=== PATIENT | female | born 1950 | race Caucasian/White ===

== ENCOUNTER 2019-07-28 21:02 | Emergency (ER) | payer OTHER ==
--- NOTE | 2019-07-28 21:10 | PDOC ---
History of Present Illness - General Chief Complaint: Nausea/Vomiting Stated Complaint: VOMITING Time Seen by Provider: 07/28/19 21:09 - History of Present Illness Initial Comments: 07/28/19 21:10 68 year old female with significant medical hx of gastritis (omeprazole) who presents with 1 week of headache and abdominal pain that worsened today and associated with 10x episodes of nbnb emesis and diarrhea over the past hour. The patient denies fevers, chest pain, shortness of breath, dysuria, hematuria or recent illness. She has no other complaints. No history of gallstones of alcohol use. ROS GENERAL/CONSTITUTIONAL: No fever or chills. No weakness. HEAD, EYES, EARS, NOSE AND THROAT: No sore throat. CARDIOVASCULAR: No chest pain or shortness of breath RESPIRATORY: No cough, wheezing, or hemoptysis. GASTROINTESTINAL: + nausea, vomiting, diarrhea, No constipation. GENITOURINARY: No dysuria, frequency, or change in urination. MUSCULOSKELETAL: No joint or muscle swelling or pain. No neck or back pain. SKIN: No rash NEUROLOGIC: + headache, No vertigo, loss of consciousness, or change in strength /sensation. PE GENERAL: Awake, alert, and fully oriented, in no acute distress HEAD: No signs of trauma, normocephalic, atraumatic EYES: EOMI, sclera anicteric, conjunctiva clear ENT: oropharynx clear without exudates. Moist mucosa NECK: Normal ROM, supple LUNGS: No distress, speaks full sentences, clear to auscultation bilaterally HEART: Regular rate and rhythm, normal S1 and S2, no murmurs, rubs or gallops, peripheral pulses normal and equal bilaterally. ABDOMEN: Soft, nontender No guarding, no rebound. No masses EXTREMITIES : Normal inspection, Normal range of motion, no edema. No clubbing or cyanosis. NEUROLOGICAL: Cranial nerves II through XII grossly intact. Normal speech, no focal sensorimotor deficits, no deficit on finger to nose SKIN: Warm, Dry, normal turgor, no rashes or lesions noted MDM DDX including but not limited to: viral gastroenteritis vs pud vs pancreatitis vs cholelithiasis r/o acs ED Course: cbc, cmp, lipase, trop, ekg reglan, zofran, pepcid, maalox, sucralfate, levsin Initial Vital Signs Temp Pulse Resp BP Pulse Ox 97.1 F L 78 18 111/69 100 07/28/19 21:10 07/28/19 21:10 07/28/19 21:10 07/28/19 21:10 07/28/19 21:10 CBCD WBC 17.7 K/mm3 (4.0-10.0) H 07/28/19 21:49 RBC 5.10 M/mm3 (3.60-5.2) 07/28/19 21:49 Hgb 16.0 GM/dL (10.7-15.3) H 07/28/19 21:49 Hct 48.3 % (32.4-45.2) H 07/28/19 21:49 MCV 94.7 fl (80-96) 07/28/19 21:49 MCHC 33.1 g/dl (32.0-36.0) 07/28/19 21:49 RDW 14.1 % (11.6-15.6) D 07/28/19 21:49 Plt Count 260 K/MM3 (134-434) 07/28/19 21:49 MPV 8.5 fl (7.5-11.1) D 07/28/19 21:49 CMP Sodium 137 mmol/L (136-145) 07/28/19 21:49 Potassium 4.4 mmol/L (3.5-5.1) 07/28/19 21:49 Chloride 103 mmol/L (98-107) 07/28/19 21:49 Carbon Dioxide 27 mmol/L (21-32) 07/28/19 21:49 Anion Gap 7 MMOL/L (8-16) L 07/28/19 21:49 BUN 17.2 mg/dL (7-18) 07/28/19 21:49 Creatinine 1.1 mg/dL (0.55-1.3) 07/28/19 21:49 Calcium 10.1 mg/dL (8.5-10.1) 07/28/19 21:49 Total Bilirubin 0.3 mg/dL (0.2-1) 07/28/19 21:49 AST 60 U/L (15-37) H 07/28/19 21:49 ALT 77 U/L (13-61) H 07/28/19 21:49 Alkaline Phosphatase 293 U/L (45-117) H 07/28/19 21:49 Total Protein 9.4 g/dl (6.4-8.2) H 07/28/19 21:49 Albumin 4.6 g/dl (3.4-5.0) 07/28/19 21:49 labs with leukocytosis elevated alk phos CT AP shows no acute pathology on reassessment patient feels improved and eager to d/c urine with + UTI will treat and d/c with pcp f.u and abx strict return precautions provided patient expresses understanding and agrees ot f/u barby Mars, PGY2 Emergency Medicine Past History - Past Medical History Allergies/Adverse Reactions: Allergies Allergy/AdvReac Type Severity Reaction Status Date / Time No Known Drug Allergies Allergy Unknown Verified 10/27/15 15:41 Home Medications: Ambulatory Orders Ondansetron [Zofran *Odt*] 4 mg SL TID #30 od.tablet 10/28/15 Pantoprazole Sodium [Protonix] 40 mg PO DAILY #30 tablet. 10/28/15 Cephalexin Monohydrate [Keflex -] 500 mg PO BID 7 Days #13 capsule 07/29/19 Ondansetron [Zofran -] 4 mg PO BID #14 tablet 07/29/19 GI Disorders: Yes (GERD) - Surgical History GI Surgery: Yes (COLONOSCOPY) - Psycho Social/Smoking Cessation Hx Smoking History: Never smoked Hx Alcohol Use: No Drug/Substance Use Hx: No ED Treatment Course - LABORATORY CBC & Chemistry Diagram: 07/28/19 21:49 07/28/19 21:49 Discharge - Discharge Information Problems reviewed: Yes Clinical Impression/Diagnosis: Gastroenteritis Condition: Stable Disposition: HOME - Admission No - Additional Discharge Information Prescriptions: Cephalexin Monohydrate [Keflex -] 500 mg PO BID 7 Days #13 capsule Ondansetron [Zofran -] 4 mg PO BID #14 tablet - Follow up/Referral - Patient Discharge Instructions Patient Printed Discharge Instructions: DI for Vomiting -- Adult Additional Instructions: You were seen in the ED for complaints of vomiting and diarrhea In the ED you were evaluated with labwork and imaging Your results showed an elevated white count and a urinary tract infection Your abdomen CT scan was unremarkable for abdomen abnormality There does not appear to be an acute need for immediate hospitalization. You are advised to follow up with your Primary Care Physician within 1 week. You were given a prescription for Zofran antinausea medicine and Keflex for treatment of your UTI Return to the ED immediately if you experience if you experience worsening nausea, vomiting, fever, blood in the diarrhea or vomit or any other concerning symptoms. Usted fue visto en el servicio de urgencias por quejas de vmitos y diarrea En el servicio de urgencias, lo evaluaron con anlisis de laboratorio e imgenes Daisy resultados mostraron un recuento elevado de blancos y robson infeccin del tracto urinario Salmeron tomografa computarizada del abdomen no fue notable por anormalidad abdominal No parece tamar robson necesidad aguda de hospitalizacin inmediata. Se recomienda hacer un seguimiento con salmeron mdico de atencin primaria dentro de 1 semana. Se le recet un medicamento contra las nuseas Zofran y Keflex para el tratamiento de salmeron infeccin urinaria. Regrese al servicio de urgencias de inmediato si experimenta nuseas, vmitos, fiebre, brea en la diarrea o vmito o cualquier otro sntoma relacionado. - Post Discharge Activity
[2019-07-28] MEDS ORDERED: ONDANSETRON 4 MG/2 ML VIAL IVPUSH ONE (21:12)
[2019-07-28] MEDS ORDERED: SODIUM CHLORIDE 1,000 ML IV SCH ×2 (21:15→22:17)
[2019-07-28] MEDS ORDERED: SUCRALFATE 1 GM/10 ML UNIT DOSE CUPS PO ONE (21:39)
[2019-07-28] MEDS ORDERED: MAG HYDROX/AL HYDROX/SIMETH -MYLANTA- ORAL SUSPENSION PO ONE (21:39)
[2019-07-28] MEDS ORDERED: FAMOTIDINE 20 MG/50 ML IVPB 20 MG/50 ML MG IVPB ONE ×2 (21:39→22:14)
[2019-07-28] MEDS ORDERED: ACETAMINOPHEN 1000 MG/100 ML VIAL (NON FORMULARY) IVPB ONE (21:40)
[2019-07-28] MEDS ORDERED: METOCLOPRAMIDE HCL INJECTION 10 MG/2 ML VIAL IVPUSH ONE (21:43)
[2019-07-28] MEDS ORDERED: HYOSCYAMINE SULFATE 0.125 MG TABLET PO ONE (21:43)
[2019-07-28 21:58] LABS: BASO % 0.6 % (0-2.0); EOS % 1.5 % (0-4.5); HEMATOCRIT 48.3 % (32.4-45.2); LYMPH % 4.9 % (8-40); MCH 31.4 pg (25.7-33.7); MCHC 33.1 g/dl (32.0-36.0); MEAN CELL VOLUME 94.7 fl (80-96); MEAN PLT VOLUME 8.5 fl (7.5-11.1); MONO % 2.6 % (3.8-10.2); NEUT % 90.4 % (42.8-82.8); PLATELET COUNT 260 K/MM3 (134-434); RDW 14.1 % (11.6-15.6); WHITE BLOOD COUNT 17.7 K/mm3 (4.0-10.0)
[2019-07-28] MEDS ORDERED: SUCRALFATE 1 GM TABLET (FP) ONE (22:13)
[2019-07-28] MEDS ORDERED: METOCLOPRAMIDE HCL INJECTION 10 MG/2 ML VIAL ONE (22:13)
[2019-07-28] MEDS ORDERED: ACETAMINOPHEN INJECTION 100 ML IVPB ONE (22:13)
[2019-07-28] MEDS ORDERED: MAG HYDROX/AL HYDROX/SIMETH 30 ML UNIT-DOSE CUP ONE (22:13)
[2019-07-28 22:26] LABS: ALBUMIN 4.6 g/dl (3.4-5.0); BILIRUBIN,TOTAL 0.3 mg/dL (0.2-1); BLOOD UREA NITROGEN 17.2 mg/dL (7-18); CALCIUM 10.1 mg/dL (8.5-10.1); CREATININE 1.1 mg/dL (0.55-1.3); POTASSIUM 4.4 mmol/L (3.5-5.1); TOT PROT 9.4 g/dl (6.4-8.2)
--- NOTE | 2019-07-28 22:26 | PDOC ---
Documentation entered by Marisa Mendez SCRIBE, acting as scribe for Dasha Hoew MD. Dasha Howe MD: This documentation has been prepared by the Andrea duval Nirvannie, SCRIBE, under my direction and personally reviewed by me in its entirety. I confirm that the documentation accurately reflects all work, treatment, procedures, and medical decision making performed by me. Attending Attestation - Resident Resident Name: Selena Mars - ED Attending Attestation I have performed the following: I have examined & evaluated the patient, The case was reviewed & discussed with the resident, I agree w/resident's findings & plan, Exceptions are as noted - HPI HPI: 07/28/19 22:20 The patient is a 68 year old female, with a significant past medical history of gastritis, who presents to the emergency department with 1 week of abdominal pain and headaches with new onset one 1 hour of NBNB emesis and diarrhea. She denies recent fevers, chills, headache or dizziness. She denies recent dysuria, frequency, urgency or hematuria. She denies recent chest pain or shortness of breath. Allergies: NKDA - Physicial Exam PE: 07/28/19 22:09 GENERAL: The patient is in no acute distress. ENT: Ears normal, nares patent, oropharynx clear without exudates. Dry mucous membranes. NECK: Normal range of motion, supple, NO nuchal rigidity LUNGS: Breath sounds equal, clear to auscultation bilaterally. No wheezes, and no crackles. HEART: Regular rate and rhythm, normal S1 and S2 without murmur, rub or gallop. ABDOMEN: Soft, tender to palpation in the epigastrium and RUQ, no involuntary guarding, no rebounf EXTREMITIES: Normal range of motion, no edema. NEUROLOGICAL: Cranial nerves II through XII grossly intact. Normal speech. No focal neurological deficits. SKIN: Warm, Dry, normal turgor, no rashes or lesions noted. - Medical Decision Making 07/28/19 22:12 68-year-old female presenting to the emergency department with a complaint of nausea, vomiting, diarrhea, headache. Patient states she has had a headache and epigastric pain for at least 1 week This evening approximately 1 hours prior to arrival, she began vomiting and having diarrhea Upwards of 10-15 episodes of vomiting (non bloody) No fevers or chills Pt has had abdominal pain/tenderness On exam: RUQ and epigastric tenderness to palpation no involunary guarding or rebound 07/28/19 22:17 Laboratory Tests 07/28/19 21:49 WBC 17.7 H Hgb 16.0 H Hct 48.3 H Plt Count 260 Neutrophils % 90.4 H 07/28/19 22:20 EKG: Twelve-lead EKG was personally reviewed. There is normal sinus rhythm. The axis is normal. The intervals are normal. There is no atrial or ventricular hypertrophy. There are no ST or T wave abnormalities. There is normal R wave progression. Impression: Normal [address] with no acute findings Pt feeling better Will discharge to home Will ask pt to follow up with GI Likely Gastritis? vs. Acute Gastroenteritis
[2019-07-28 22:27] LABS: LIPASE 354 U/L (73-393)
[2019-07-28 22:43] LABS: ANISOCYTOSIS 1+; MACROCYTOSIS 0; PLATELET ESTIMATE NORMAL; TEAR DROP CELLS 1+
[2019-07-28 23:57] VITALS: BMI 33.8
[2019-07-29 00:10] LABS: EPI CELLS 3.6 /HPF (0-5/HPF); HYALINE CASTS 65 /lpf (0-8); PH,URINE 5.5 (5.0-8.0); URINE APPEARANCE CLOUDY; URINE BACTERIA 162.8 /hpf (NEGATIVE); URINE BILIRUBIN 2+ (NEGATIVE); URINE COLOR DK YELLOW; URINE GLUCOSE (UA) NEGATIVE (NEGATIVE); URINE KETONE TRACE (NEGATIVE); URINE LEUK ESTERASE 1+ (NEGATIVE); URINE NITRITE NEGATIVE (NEGATIVE); URINE PROTEIN 2+ (NEGATIVE); URINE RBC 1 /hpf (0-4); URINE WBC 33 /hpf (0-5)
[2019-07-29] MEDS ORDERED: CEPHALEXIN MONOHYDRATE 500 MG CAPSULE (UD) PO ONE (02:06)
[2019-07-29 02:11] VITALS: BP 103/61; PULSE 85; TEMP 98
[2019-07-29] MEDS ORDERED: CEPHALEXIN MONOHYDRATE 500 MG CAPSULE (UD) ONE (02:15)
--- NOTE | 2019-07-29 15:27 | EKG ---
Test Reason : Blood Pressure : / mmHG Vent. Rate : 085 BPM Atrial Rate : 085 BPM P-R Int : 132 ms QRS Dur : 096 ms QT Int : 380 ms P-R-T Axes : 048 -55 036 degrees QTc Int : 452 ms POOR DATA QUALITY, INTERPRETATION MAY BE ADVERSELY AFFECTED NORMAL SINUS RHYTHM LEFT ANTERIOR FASCICULAR BLOCK ABNORMAL ECG NO PREVIOUS ECGS AVAILABLE Confirmed by MD ROSSANA, KERRIE ([id number]) on 07/29/2019 3:26:58 PM Referred By: Confirmed By:KERRIE TRACY MD
== END 2019-07-29 02:26 | disposition home or self-care (01) ==
LOC: JER 21:02
PROC: 3E033NZ Introduction of Analgesics, Hypnotics, Sedatives into Peripheral Vein, Percutaneous Approach (ICD-10-PCS; principal; 2019-07-28)
PROC: 3E033GC Introduction of Other Therapeutic Substance into Peripheral Vein, Percutaneous Approach (ICD-10-PCS; 2019-07-28)
PROC: 3E033GC Introduction of Other Therapeutic Substance into Peripheral Vein, Percutaneous Approach (ICD-10-PCS; 2019-07-28)
DX: K52.9 Noninfective gastroenteritis and colitis, unspecified (principal)
CPT/HCPCS: 36415; 70450-TC; 74177-TC; 80053; 81003; 83690; 84484; 85025; 87086; 87186; 93005; 93010; 99283-25; J0131; J7030

== ENCOUNTER 2021-02-28 19:52 | Inpatient (IN) | payer MEDICARE, OTHER ==
[2021-02-28 19:59] VITALS: BMI 26.4
[2021-02-28] MEDS ORDERED: ACETAMINOPHEN 1000 MG/100 ML VIAL (NON FORMULARY) IVPB ONE (21:06)
[2021-02-28] MEDS ORDERED: ACETAMINOPHEN INJECTION 100 ML IVPB ONE (21:24)
[2021-02-28 21:30] LABS: BASO % 0.8 % (0-2.0); EOS % 3.2 % (0-4.5); HEMATOCRIT 37.4 % (32.4-45.2); HEMOGLOBIN 12.9 GM/dL (10.7-15.3); LYMPH % 27.1 % (8-40); MCH 32.3 pg (25.7-33.7); MCHC 34.5 g/dl (32.0-36.0); MEAN CELL VOLUME 93.6 fl (80-96); MEAN PLT VOLUME 9.7 fl (7.5-11.1); MONO % 10.5 % (3.8-10.2); NEUT % 58.4 % (42.8-82.8); PLATELET COUNT 227 10^3/uL (134-434); RBC 3.99 M/mm3 (3.60-5.2); RDW 13.9 % (11.6-15.6); WHITE BLOOD COUNT 8.4 K/mm3 (4.0-10.0)
[2021-02-28 21:49] LABS: CHLORIDE 107 mmol/L (98-107); SODIUM 140 mmol/L (136-145)
[2021-02-28] MEDS ORDERED: FAMOTIDINE 20 MG/50 ML IVPB 20 MG/50 ML MG IVPB ONE ×2 (21:50→22:00)
[2021-02-28] MEDS ORDERED: MAG HYDROX/AL HYDROX/SIMETH 30 ML UNIT-DOSE CUP PO ONE (21:50)
[2021-02-28 21:51] LABS: CALCIUM 8.6 mg/dL (8.5-10.1)
[2021-02-28 21:52] LABS: ALBUMIN 3.4 g/dl (3.4-5.0); ANION GAP 9 MMOL/L (8-16); CO2 25 mmol/L (21-32); GLUCOSE,RANDOM 111 mg/dL (74-106); LIPASE 243 U/L (73-393)
[2021-02-28 21:54] LABS: SGPT/ALT 261 U/L (13-61)
[2021-02-28 21:55] LABS: CREATININE 0.9 mg/dL (0.55-1.3); SGOT/AST 164 U/L (15-37)
[2021-02-28 21:56] LABS: TOT PROT 7.2 g/dl (6.4-8.2)
[2021-02-28 21:57] LABS: ALK PHOS 321 U/L (45-117)
[2021-02-28] MEDS ORDERED: MAG HYDROX/AL HYDROX/SIMETH 30 ML UNIT-DOSE CUP ONE (22:00)
[2021-02-28 22:08] LABS: EPI CELLS 7 /uL (0-25.1); HYALINE CASTS 1 /uL (0-3.1); PH,URINE 6.5 (5.0-8.0); URINE APPEARANCE CLEAR; URINE BACTERIA >9,000 /uL (0-1359); URINE BILIRUBIN NEGATIVE (NEGATIVE); URINE COLOR YELLOW; URINE GLUCOSE (UA) NEGATIVE (NEGATIVE); URINE KETONE NEGATIVE (NEGATIVE); URINE LEUK ESTERASE 2+ (NEGATIVE); URINE NITRITE POSITIVE (NEGATIVE); URINE PROTEIN NEGATIVE (NEGATIVE); URINE RBC 9 /uL (0-23.9); URINE WBC 120 /uL (0-25.8)
[2021-02-28] MEDS ORDERED: VANCOMYCIN 1 GM in D5W (PRE-DOCKED) 1,000 MG/250 ML IVPB ONE (23:24)
[2021-02-28] MEDS ORDERED: CEFTRIAXONE 1 GM in DEXTROSE 5%-WATER - 50 ML IVPB ONE (23:24)
[2021-02-28] MEDS ORDERED: VANCOMYCIN 1 GRAM (PRE-DOCKED) 1,000 MG/250 ML BAG IVPB ONE (23:29)
[2021-02-28] MEDS ORDERED: CEFTRIAXONE 1 GM/50 ML BAG ONE (23:29)
[2021-03-01] MEDS ORDERED: CEFAZOLIN 1 GM in DEXTROSE 5%-WATER - 50 ML IVPB ONE ×2 (03:18→08:00)
[2021-03-01 09:34] LABS: BASO % 0.7 % (0-2.0); EOS % 5.6 % (0-4.5); HEMOGLOBIN 12.9 GM/dL (10.7-15.3); MCH 31.9 pg (25.7-33.7); MCHC 33.9 g/dl (32.0-36.0); MEAN CELL VOLUME 94.2 fl (80-96); MEAN PLT VOLUME 9.6 fl (7.5-11.1); MONO % 12.2 % (3.8-10.2); NEUT % 54.5 % (42.8-82.8); PLATELET COUNT 225 10^3/uL (134-434); RBC 4.03 M/mm3 (3.60-5.2); WHITE BLOOD COUNT 5.2 K/mm3 (4.0-10.0)
[2021-03-01 09:58] LABS: TRIGLYCERIDES 137 mg/dL (0-150)
[2021-03-01 09:59] LABS: ALBUMIN 3.2 g/dl (3.4-5.0); BLOOD UREA NITROGEN 12.5 mg/dL (7-18); CALCIUM 8.5 mg/dL (8.5-10.1); LDL CHOLESTEROL (ONLY SJRH) 142 mg/dL (5-100); MAGNESIUM 2.4 mg/dL (1.8-2.4)
[2021-03-01] MEDS ORDERED: CEFAZOLIN 1 GM in DEXTROSE 5%-WATER - 50 ML IVPB SCH (10:00)
[2021-03-01] MEDS ORDERED: ENOXAPARIN NA (PORCINE) 40 MG/0.4 ML DISP.SYRIN SQ SCH (10:00)
[2021-03-01 10:01] LABS: CREATININE 0.7 mg/dL (0.55-1.3); PHOSPHOROUS 3.3 mg/dL (2.5-4.9)
[2021-03-01 10:02] LABS: BILIRUBIN,TOTAL 0.5 mg/dL (0.2-1); CHOLESTEROL 236 mg/dL (50-200); HDL CHOLESTEROL 61 mg/dL (40-60); TOT PROT 6.9 g/dl (6.4-8.2)
[2021-03-01] MEDS ORDERED: PT OWN MED DRAWER 7, Y5N ONE ×2 (10:34→18:07)
[2021-03-01] MEDS: FAMOTIDINE 20 MG TABLET PO SCH (11:09)
[2021-03-01] MEDS: CEFAZOLIN 1 GM in DEXTROSE 5%-WATER - 50 ML IVPB SCH ×2 (12:45→18:20)
[2021-03-01] MEDS ORDERED: diphenhydrAMINE HCL 25 MG CAPSULE (FP) PO ONE (17:14)
[2021-03-01] MEDS: SODIUM CHLORIDE 1,000 ML IV SCH (18:10)
[2021-03-01] MEDS ORDERED: ceFAZolin SODIUM 1 GM VIAL ONE (18:18)
[2021-03-01] MEDS ORDERED: DEXTROSE 5%-WATER - 50 ML IVPB ONE (18:19)
[2021-03-01] MEDS: HEPARIN NA (PORCINE) 5,000 UNITS/ML 1ML VIAL SQ SCH (21:34)
[2021-03-02] MEDS ORDERED: DEXTROSE 5%-WATER - 50 ML IVPB ONE ×3 (00:36→17:00)
[2021-03-02] MEDS ORDERED: ceFAZolin SODIUM 1 GM VIAL ONE ×3 (00:36→17:00)
[2021-03-02] MEDS: CEFAZOLIN 1 GM in DEXTROSE 5%-WATER - 50 ML IVPB SCH ×3 (01:14→17:04)
[2021-03-02] MEDS: HEPARIN NA (PORCINE) 5,000 UNITS/ML 1ML VIAL SQ SCH ×3 (06:40→21:27)
[2021-03-02 09:13] LABS: BASO % 0.6 % (0-2.0); EOS % 6.9 % (0-4.5); HEMATOCRIT 36.8 % (32.4-45.2); HEMOGLOBIN 12.7 GM/dL (10.7-15.3); LYMPH % 38.8 % (8-40); MCH 32.7 pg (25.7-33.7); MCHC 34.6 g/dl (32.0-36.0); MEAN CELL VOLUME 94.5 fl (80-96); MEAN PLT VOLUME 8.9 fl (7.5-11.1); MONO % 10.3 % (3.8-10.2); NEUT % 43.4 % (42.8-82.8); PLATELET COUNT 226 10^3/uL (134-434); RBC 3.89 M/mm3 (3.60-5.2); RDW 13.7 % (11.6-15.6); WHITE BLOOD COUNT 5.3 K/mm3 (4.0-10.0)
[2021-03-02 09:19] LABS: INR 0.93 (0.83-1.09); PROTHROMBIN TIME (PATIENT) 11.3 SEC (9.7-13.0)
[2021-03-02] MEDS ORDERED: diphenhydrAMINE HCL 25 MG CAPSULE (FP) PO ONE (09:31)
[2021-03-02 09:45] LABS: CALCIUM 8.2 mg/dL (8.5-10.1)
[2021-03-02 09:46] LABS: ALBUMIN 3.1 g/dl (3.4-5.0); BLOOD UREA NITROGEN 10.3 mg/dL (7-18)
[2021-03-02 09:47] LABS: BILIRUBIN,TOTAL 0.4 mg/dL (0.2-1); CREATININE 0.8 mg/dL (0.55-1.3); TOT PROT 6.5 g/dl (6.4-8.2)
[2021-03-02 09:48] LABS: BILIRUBIN,DIRECT 0.2 mg/dL (0.0-0.2)
[2021-03-02] MEDS: FAMOTIDINE 20 MG TABLET PO SCH (10:42)
[2021-03-02] MEDS: SODIUM CHLORIDE 1,000 ML IV SCH ×2 (10:43→20:00)
[2021-03-02] MEDS ORDERED: IBUPROFEN 200 MG TABLET PO ONE (15:52)
[2021-03-02] MEDS ORDERED: IBUPROFEN 400 MG TABLET (FP) PO ONE (16:15)
[2021-03-02] MEDS ORDERED: IBUPROFEN 800 MG/8 ML IJ IVPB PRN (22:00)
[2021-03-03] MEDS: CEFAZOLIN 1 GM in DEXTROSE 5%-WATER - 50 ML IVPB SCH ×2 (02:09→12:07)
[2021-03-03] MEDS ORDERED: DEXTROSE 5%-WATER - 50 ML IVPB ONE ×3 (02:12→17:21)
[2021-03-03] MEDS ORDERED: ceFAZolin SODIUM 1 GM VIAL ONE ×3 (02:12→17:21)
[2021-03-03 09:10] LABS: BASO % 1.4 % (0-2.0); EOS % 4.7 % (0-4.5); HEMATOCRIT 38.1 % (32.4-45.2); LYMPH % 35.6 % (8-40); MCH 32.5 pg (25.7-33.7); MCHC 34.2 g/dl (32.0-36.0); MEAN CELL VOLUME 94.9 fl (80-96); MEAN PLT VOLUME 9.8 fl (7.5-11.1); MONO % 9.2 % (3.8-10.2); NEUT % 49.1 % (42.8-82.8); PLATELET COUNT 224 10^3/uL (134-434); RBC 4.01 M/mm3 (3.60-5.2); RDW 13.9 % (11.6-15.6)
[2021-03-03 09:29] LABS: BLOOD UREA NITROGEN 6.3 mg/dL (7-18); CALCIUM 8.1 mg/dL (8.5-10.1)
[2021-03-03 09:30] LABS: ALBUMIN 3.2 g/dl (3.4-5.0)
[2021-03-03 09:33] LABS: CREATININE 0.7 mg/dL (0.55-1.3)
[2021-03-03 09:34] LABS: BILIRUBIN,TOTAL 0.4 mg/dL (0.2-1); TOT PROT 6.9 g/dl (6.4-8.2)
[2021-03-03] MEDS: SODIUM CHLORIDE 1,000 ML IV SCH ×3 (10:31→19:28)
[2021-03-03 10:53] LABS: ERYTHROCYTE SEDIMENTATION RATE 28 mm/hr (0-30)
[2021-03-03] MEDS: FAMOTIDINE 20 MG TABLET PO SCH (11:26)
[2021-03-03] MEDS ORDERED: BUPIVACAINE HCL/PF 0.5% (5MG/ML) 10 ML VIAL ONE (13:39)
[2021-03-03] MEDS ORDERED: ceFAZolin SODIUM 1 GM VIAL IVPB ONE (15:05)
[2021-03-03] MEDS ORDERED: BUPIVACAINE HCL/PF 0.5% (5MG/ML) 10 ML VIAL IJ ONE (15:40)
[2021-03-03] MEDS ORDERED: ACETAMINOPHEN 325 MG TABLET (FP) PO PRN (16:20)
[2021-03-03] MEDS ORDERED: oxyCODONE HCL 5 MG TABLET PO PRN ×2 (16:21)
[2021-03-03] MEDS ORDERED: ONDANSETRON 4 MG/2 ML VIAL IVPUSH PRN (16:22)
[2021-03-03] MEDS ORDERED: ACETAMINOPHEN INJECTION 100 ML IVPB ONE (16:22)
[2021-03-03] MEDS ORDERED: ACETAMINOPHEN 1000 MG/100 ML VIAL (NON FORMULARY) IVPB ONE (17:26)
[2021-03-03] MEDS ORDERED: LACTATED RINGERS SOLUTION 1,000 ML IV SCH (17:30)
[2021-03-03] MEDS ORDERED: CEFAZOLIN 1 GM in DEXTROSE 5%-WATER - 50 ML IVPB SCH (18:00)
[2021-03-03] MEDS ORDERED: LACTATED RINGERS SOLUTION 1,000 ML/1,000 ML INFUS.BAG IV SCH (19:45)
[2021-03-03] MEDS: HEPARIN NA (PORCINE) 5,000 UNITS/ML 1ML VIAL SQ SCH (21:15)
[2021-03-03] MEDS: ACETAMINOPHEN 1000 MG/100 ML VIAL (NON FORMULARY) IVPB PRN (22:55)
[2021-03-04] MEDS: HEPARIN NA (PORCINE) 5,000 UNITS/ML 1ML VIAL SQ SCH ×2 (05:10→14:32)
[2021-03-04] MEDS: ACETAMINOPHEN 1000 MG/100 ML VIAL (NON FORMULARY) IVPB PRN (05:10)
[2021-03-04] MEDS ORDERED: CEPHALEXIN MONOHYDRATE 500 MG CAPSULE (UD) PO SCH (10:00)
[2021-03-04] MEDS ORDERED: FAMOTIDINE 20 MG TABLET PO SCH (10:00)
[2021-03-04 11:33] LABS: BASO % 0.3 % (0-2.0); EOS % 0.3 % (0-4.5); HEMATOCRIT 37.1 % (32.4-45.2); HEMOGLOBIN 12.6 GM/dL (10.7-15.3); LYMPH % 29.5 % (8-40); MCH 32.1 pg (25.7-33.7); MEAN CELL VOLUME 94.3 fl (80-96); MEAN PLT VOLUME 10.2 fl (7.5-11.1); MONO % 9.8 % (3.8-10.2); NEUT % 60.1 % (42.8-82.8); PLATELET COUNT 236 10^3/uL (134-434); RBC 3.93 M/mm3 (3.60-5.2); RDW 13.6 % (11.6-15.6)
[2021-03-04 12:09] LABS: ALBUMIN 3.2 g/dl (3.4-5.0); BLOOD UREA NITROGEN 6.9 mg/dL (7-18); CALCIUM 8.5 mg/dL (8.5-10.1)
[2021-03-04 12:12] LABS: BILIRUBIN,DIRECT 0.2 mg/dL (0.0-0.2); CREATININE 0.9 mg/dL (0.55-1.3)
[2021-03-04 12:14] LABS: BILIRUBIN,TOTAL 0.7 mg/dL (0.2-1); TOT PROT 6.7 g/dl (6.4-8.2)
[2021-03-04 15:38] VITALS: BP 148/80; PULSE 61; TEMP 98.2
== END 2021-03-04 14:00 | disposition home or self-care (01) | DRG 263 ==
LOC: JER 19:52 → JERBED 23:26 → J5S 03-01 03:02
PROVIDERS: ADMIT Internal Medicine; ATTEND Internal Medicine
PROC: 0FT44ZZ Resection of Gallbladder, Percutaneous Endoscopic Approach (ICD-10-PCS; principal; 2021-03-04)
DX: K80.10 Calculus of gallbladder with chronic cholecystitis without obstruction (principal); K21.9 Gastro-esophageal reflux disease without esophagitis; K76.0 Fatty (change of) liver, not elsewhere classified; N39.0 Urinary tract infection, site not specified; L03.116 Cellulitis of left lower limb; R74.01 Elevation of levels of liver transaminase levels; T78.3XXA Angioneurotic edema, initial encounter; T37.3X5A Adverse effect of other antiprotozoal drugs, initial encounter; Y92.230 Patient room in hospital as the place of occurrence of the external cause
CPT/HCPCS: 36415; 71045-TC-FY; 74181-TC; 76705-TC; 80048; 80053; 80061; 80074; 80076; 81003; 82150; 82248; 82550; 83690; 83721; 83735; 84100; 84484; 85025; 85610; 85651; 86140; 87086; 87186; 93005; 93010; 93971-TC; 94760; 99285-25; C9803; J0131; J1644; U0003; U0005

== ENCOUNTER 2021-05-12 15:03 | Emergency (ER) | payer MEDICARE, OTHER ==
[2021-05-12 15:15] VITALS: BMI 27.3
[2021-05-12] MEDS ORDERED: MECLIZINE HCL 25 MG TABLET (FP) PO ONE (16:15)
[2021-05-12] MEDS ORDERED: SODIUM CHLORIDE 0.9% 500 ML INFUS.BAG IV ONE (16:15)
[2021-05-12] MEDS ORDERED: METOCLOPRAMIDE HCL INJECTION 10 MG/2 ML VIAL IVPB ONE (16:15)
[2021-05-12] MEDS ORDERED: MECLIZINE HCL 25 MG TABLET (FP) ONE (16:48)
[2021-05-12] MEDS ORDERED: METOCLOPRAMIDE HCL INJECTION 10 MG/2 ML VIAL ONE (16:48)
[2021-05-12 17:18] LABS: BASO % 0.4 % (0-2.0); EOS % 7.6 % (0-4.5); HEMATOCRIT 39.8 % (32.4-45.2); HEMOGLOBIN 13.6 GM/dL (10.7-15.3); MCH 31.9 pg (25.7-33.7); MCHC 34.3 g/dl (32.0-36.0); MEAN CELL VOLUME 93.1 fl (80-96); MEAN PLT VOLUME 8.4 fl (7.5-11.1); MONO % 7.5 % (3.8-10.2); NEUT % 51.5 % (42.8-82.8); PLATELET COUNT 243 10^3/uL (134-434); RBC 4.27 M/mm3 (3.60-5.2); RDW 13.3 % (11.6-15.6); WHITE BLOOD COUNT 7.2 K/mm3 (4.0-10.0)
[2021-05-12 17:40] LABS: CHLORIDE 105 mmol/L (98-107); SODIUM 139 mmol/L (136-145)
[2021-05-12 17:42] LABS: ALBUMIN 3.4 g/dl (3.4-5.0); ANION GAP 8 MMOL/L (8-16); BLOOD UREA NITROGEN 11.6 mg/dL (7-18); CALCIUM 8.8 mg/dL (8.5-10.1); CO2 26 mmol/L (21-32); MAGNESIUM 2.4 mg/dL (1.8-2.4)
[2021-05-12 17:44] LABS: GLUCOSE,RANDOM 91 mg/dL (74-106)
[2021-05-12 17:45] LABS: CREATININE 0.7 mg/dL (0.55-1.3); SGOT/AST 38 U/L (15-37); SGPT/ALT 42 U/L (13-61)
[2021-05-12 17:47] LABS: BILIRUBIN,TOTAL 0.3 mg/dL (0.2-1); TOT PROT 7.9 g/dl (6.4-8.2)
[2021-05-12 17:48] LABS: ALK PHOS 229 U/L (45-117)
[2021-05-12 19:19] VITALS: BP 136/78; PULSE 86; TEMP 98.6
== END 2021-05-12 19:19 | disposition home or self-care (01) ==
LOC: JER 15:03
PROC: 3E033NZ Introduction of Analgesics, Hypnotics, Sedatives into Peripheral Vein, Percutaneous Approach (ICD-10-PCS; principal; 2021-05-12)
DX: R42 Dizziness and giddiness (principal); H61.20 Impacted cerumen, unspecified ear
CPT/HCPCS: 36415; 70450-TC; 72125-TC; 80053; 82550; 83735; 84484; 85025; 93005; 93010; 96374; 99284-25